=== PATIENT | male | born 1990 | race Two or more races ===

== ENCOUNTER 2019-12-16 17:45 | Emergency (ER) | payer OTHER ==
[~2019-12-16] VITALS: Ht 177.8 cm; Wt 102.1 kg
== END 2019-12-16 19:06 | disposition home or self-care (01) ==
LOC: ER 17:45
DX: S61.224A Laceration with foreign body of right ring finger without damage to nail, initial encounter (principal); S61.226A Laceration with foreign body of right little finger without damage to nail, initial encounter; W25.XXXA Contact with sharp glass, initial encounter; Y93.89 Activity, other specified; Y92.59 Other trade areas as the place of occurrence of the external cause; Y99.8 Other external cause status

== ENCOUNTER 2019-12-30 15:14 | Emergency (ER) | payer OTHER ==
[~2019-12-30] VITALS: Ht 175.3 cm; Wt 113.4 kg
== END 2019-12-30 15:41 | disposition home or self-care (01) ==
LOC: ER 15:14
DX: Z48.02 Encounter for removal of sutures (principal)